=== PATIENT | female | born 1980 | race Caucasian/White ===

== ENCOUNTER 2016-09-03 11:37 | Day surgery (SDC) | payer MEDICAID ==
[~2016-09-03] VITALS: Ht 154.9 cm; Wt 61.2 kg
[~2016-09-03 11:37] MED LIST: AMLO10TA80 PO; CHOL500010 PO; FENTANYL CITRATE/PF 50MCG/ML 2ML VIAL IV PRN; FURO80TA3 PO; HYDROMORPHONE HCL/PF 2MG/ML CPJ IV PRN; LABE300T PO; LACT1CAP56 PO; ONDANSETRON HCL 4MG/2ML VIAL IV PRN; PANT40TA4 PO; PRED5TAB48 PO
[2016-09-03] MEDS ORDERED: LIDOCAINE HCL 1% 20ML VIAL (Pyxis) INJ ONE ×2 (13:00→13:22)
[2016-09-03] MEDS ORDERED: HEPARIN SODIUM 1,000 UNIT/1ML VIAL IV ONE (13:00)
[2016-09-03] MEDS ORDERED: BUPIVACAINE HCL/PF 0.5% (5MG/ML) 10ML ONE (13:00)
[2016-09-03] MEDS ORDERED: GELATIN SPONGE,ABSORBABLE SZ 100 ONE (13:00)
[2016-09-03] MEDS ORDERED: BACITRACIN ZINC 15GM TUBE TOP ONE (13:00)
[2016-09-03] MEDS ORDERED: NORMAL SALINE 0.9% 10 ML SYR ONE (13:00)
[2016-09-03] MEDS ORDERED: THROMBIN (BOVINE) 5000 UNITS/VIAL TOP ONE (13:01)
[2016-09-03] MEDS ORDERED: BACITRACIN 50,000 UNITS/VIAL ONE (13:01)
[2016-09-03 13:07] LABS: HEMATOCRIT. 28.7 % (36.0-48.0); HEMOGLOBIN. 9.9 g/dL (12.0-16.0); MEAN CORPUSCULAR HEMOGLOBIN 28.5 pg (28.0-32.0); MEAN CORPUSCULAR VOLUME 82.2 fL (81.0-99.0); MEAN PLATELET VOLUME 6.6 fl (7.4-10.4); PLATELET 240 x1000/uL (130-400); RED BLOOD CELL COUNT 3.49 mill/uL (4.2-5.4); RED CELL DISTRIBUTION WIDTH 13.8 % (11.6-14.6)
[2016-09-03 13:08] LABS: UCG SCREEN NEGATIVE
[2016-09-03 13:16] LABS: PARTIAL THROMBOPLASTIN TIME 34.2 sec (24.0-34.0); PROTHROMBIN TIME 9.9 sec
[2016-09-03] MEDS ORDERED: PROPOFOL 200MG/20ML VIAL IV ONE ×2 (13:21→13:50)
[2016-09-03] MEDS ORDERED: SUCCINYLCHOLINE CHLORIDE 200MG/10ML VIAL IV ONE (13:22)
[2016-09-03] MEDS ORDERED: FENTANYL CITRATE/PF 50MCG/ML 2ML VIAL ONE ×2 (13:22→15:11)
[2016-09-03] MEDS ORDERED: MIDAZOLAM HCL 2 MG/2 ML VIAL ONE (13:23)
[2016-09-03 13:33] LABS: PLATELET ESTIMATE NORMAL
[2016-09-03] MEDS ORDERED: SODIUM CHLORIDE 0.9% 10ML VIAL ONE (13:46)
[2016-09-03] MEDS ORDERED: CEFAZOLIN SODIUM 1000MG/VIAL ONE (13:50)
[2016-09-03] MEDS ORDERED: METOCLOPRAMIDE HCL 10MG/2ML VIAL ONE (14:03)
[2016-09-03] MEDS ORDERED: ONDANSETRON HCL 4MG/2ML VIAL ONE (14:03)
[2016-09-03] MEDS ORDERED: PAPAVERINE HCL 30 MG/ML 2ML IV ONE (14:13)
== END 2016-09-03 17:15 ==
LOC: OR 11:37
PROVIDERS: ATTEND Surgery Vascular Surgery
DX: I12.0 Hypertensive chronic kidney disease with stage 5 chronic kidney disease or end stage renal disease (principal); N18.6 End stage renal disease; M32.14 Glomerular disease in systemic lupus erythematosus; K21.9 Gastro-esophageal reflux disease without esophagitis; D64.89 Other specified anemias
CPT/HCPCS: 36415; 36819; 80048; 81025; 85025; 85610; 85730; 93005; A4216; J0690; J1644; J2250; J2405; J2440; J2765; J3010; J3490; J7040; J0330; J2704